=== PATIENT | female | born 1990 | race African-American/Black ===

== ENCOUNTER 2019-08-30 18:47 | Emergency (ER) | payer BC ==
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
[2019-08-30] MEDS ORDERED: FLU Vacc QS2019-20(6MOS+)/PF 60 MCG/0.5 ML SYRINGE IM ONE (19:30)
[2019-08-30] MEDS ORDERED: Orphenadrine 100 MG Tab.ER PO STA (20:28)
--- NOTE | 2019-08-31 09:06 | CR ---
Chest: Two views of the chest were obtained. Comparison: No prior chest x-ray. Heart size and mediastinum are normal. Lungs are clear. Bony structures are within normal limits. Impression: 1. Nothing acute is appreciated on two-view chest x-ray. Diagnostic code #1 This report was dictated in [place] Standard Time
== END 2019-08-30 20:42 | disposition home or self-care (01) ==
LOC: JD.ED 18:47
DX: S29.011A Strain of muscle and tendon of front wall of thorax, initial encounter (principal); G44.209 Tension-type headache, unspecified, not intractable; Z23 Encounter for immunization; V89.2XXA Person injured in unspecified motor-vehicle accident, traffic, initial encounter
CPT/HCPCS: 71046; 71046-26; 90686; 99283; 99284-25; A9270-GY; G0008